=== PATIENT | female | born 1980 ===

== ENCOUNTER 2023-05-22 23:04 | Emergency (ER) | payer BC ==
[2023-05-22] MEDS ORDERED: Ketorolac 30 MG/ML SDV IM ONE (23:59)
[2023-05-23] MEDS ORDERED: Morphine 4 MG/ML Syringe IVPUSH ONE (00:46)
[2023-05-23] MEDS ORDERED: Naloxone 0.4 MG/ML SDV IVPUSH PRN (00:46)
[2023-05-23] MEDS ORDERED: diphenhydrAMINE 25 MG Cap PO ONE (00:47)
[2023-05-23 00:56] LABS: BASOPHILS ABSOLUTE AUTO 0.05 K/uL (0.00-0.20); BASOPHILS PERCENT AUTO 0.6 % (0.0-1.0); EOSINOPHILS ABSOLUTE AUTO 0.23 K/uL (0.00-0.45); EOSINOPHILS PERCENT AUTO 2.9 % (0.0-6.0); HEMATOCRIT 39.8 % (37.0-47.0); HEMOGLOBIN 14.3 g/dL (12.0-16.0); IMMATURE GRAN ABSOLUTE AUTO 0.03 K/uL (0.00-0.05); IMMATURE GRAN PERCENT AUTO 0.4 % (0.0-0.4); LYMPHOCYTES ABSOLUTE AUTO 2.82 K/uL (1.00-4.80); MEAN CORPUSCULAR HEMOGLOBIN 32.2 pg (28.0-32.0); MEAN CORPUSCULAR HGB CONC 35.9 g/dL (32.0-36.0); MEAN CORPUSCULAR VOLUME 89.6 fL (83.0-99.0); MEAN PLATELET VOLUME 9.1 fL (9.4-12.3); MONOCYTES PERCENT AUTO 6.4 % (0.0-8.0); NEUTROPHILS ABSOLUTE AUTO 4.21 K/uL (1.80-7.70); NEUTROPHILS PERCENT AUTO 53.7 % (41.0-71.0); PLATELET COUNT,PLT 365 K/uL (150-400); RED BLOOD CELL COUNT 4.44 M/uL (4.10-5.30); WHITE BLOOD CELL COUNT,WBC 7.84 K/uL (3.9-11.3)
[2023-05-23 01:00] LABS: CARBON DIOXIDE,CO2 25.2 mmol/L (21.0-32.0); CREATININE 0.7 mg/dL (0.6-1.0); EST CRCL DRUG DOSING (CG) 100.77 mL/min; POTASSIUM,K 3.4 mmol/L (3.5-5.1)
[2023-05-23] MEDS ORDERED: Iopamidol 755 MG/ML 500 ML Multipack Bottle IVPUSH ONE (01:29)
[2023-05-23] MEDS ORDERED: oxyCODONE 5 MG Tab PO ONE (02:18)
== END 2023-05-23 02:39 | disposition home or self-care (01) ==
LOC: MW.ED 23:04
DX: S39.91XA Unspecified injury of abdomen, initial encounter (principal); Z88.8 Allergy status to other drugs, medicaments and biological substances; W22.8XXA Striking against or struck by other objects, initial encounter
CPT/HCPCS: 36415; 71250; 74177; 80048; 85025; 96372; 96374; 99284; A9270; J1885; J2270; Q9967